=== PATIENT | male | born 1940 | race Caucasian/White ===

== ENCOUNTER → 2017-04-04 | Outpatient (CLI) | payer MEDICARE | END | disposition home or self-care (01) | LOC: ROC 11:07 | PROVIDERS: ATTEND Radiology Radiation Oncology | DX: C44.42 Squamous cell carcinoma of skin of scalp and neck (principal); Z92.3 Personal history of irradiation | CPT/HCPCS: G0463 ==

== ENCOUNTER → 2017-10-07 | Outpatient (CLI) | payer MEDICARE ==
[~2017-10-07] MED LIST: LIDOCAINE 2%, 10ML ONE; OMNIPAQUE 350 MG/ML, 100ML BOTTLE ONE
== END ==
LOC: RAD 13:23
PROVIDERS: ATTEND Otolaryngology
DX: R22.1 Localized swelling, mass and lump, neck (principal); C44.42 Squamous cell carcinoma of skin of scalp and neck; H70.92 Unspecified mastoiditis, left ear
CPT/HCPCS: 70460; 70491; 76942; 88305; J3490; Q9967